=== PATIENT | female | born 1965 | race Caucasian/White ===

== ENCOUNTER 2016-05-27 08:39 | Day surgery (SDC) | payer BC, MEDICARE ==
[~2016-05-27 08:39] MED LIST: DIPRIVAN 200 MG/20 ML IV ONE; Depo-Medrol 80 MG/ML IM ONE; KEFZOL 1 GM IJ ONE; Sensorcaine 0.25% 10 ML IJ ONE; Sodium Chloride 0.9(Preservative Free) 10 ML IJ ONE
[2016-05-27] MEDS ORDERED: Lactated Ringers 1,000 ML IV SCH (09:00)
[2016-05-27] MEDS ORDERED: Pepcid 20 MG VIAL IV ONE (09:01)
[2016-05-27 09:06] VITALS: BP 120/85; PULSE 83; O2SAT 100
[2016-05-27] MEDS ORDERED: KEFZOL 1 GM ONE (11:07)
--- NOTE | 2016-05-27 12:29 | XRAY ---
Indication: Caudal ANN block. Intraoperative fluoroscopy was provided for 15 seconds. A single lateral digital spot image of the lumbosacral junction obtained without spinal needle or contrast present. Correlate with intraoperative findings/report.
--- NOTE | 2016-05-28 11:00 | XRAY ---
15 seconds fluoroscopy time in surgery for caudal ANN.
== END 2016-05-27 12:00 | disposition home or self-care (01) ==
LOC: SDC-PAIN 08:39
PROVIDERS: ATTEND Pain Medicine Interventional Pain Medicine
DX: M54.16 Radiculopathy, lumbar region (principal); M54.5 Low back pain; M48.06 Spinal stenosis, lumbar region
CPT/HCPCS: 62323; 72020; 77003; J0690; J1040; J2704; Q9967

== ENCOUNTER 2017-06-03 13:54 | Emergency (ER) | payer BC, MEDICARE ==
[2017-06-03] MEDS ORDERED: TORAdol 30 mg Injection IM ONE (16:05)
[2017-06-03] MEDS ORDERED: Norflex 60 MG/2 ML IM ONE (16:05)
--- NOTE | 2017-06-03 16:11 | ERPHSYRPT ---
- History of Present Illness Time Seen by Provider: 06/03/17 16:05 Source: patient Physician History: CC: fall Hx: 52 y/o patient of [facility]. She takes percocet for chronic pain. She fell at home last weekend and has continued pain. She states she went to pain management and they wanted CT scans and sent her here. She has headache. She has neck pain. She has some low back pain. No N/T/W. Pain is severe. Not . No chest or abd pain. Occurred: last week (weekend) Allergies/Adverse Reactions: Latex, Natural Rubber Allergy (Severe, Verified 08/31/12 14:30) Difficulty Breathing butorphanol tartrate [From Stadol] Allergy (Intermediate, Verified 08/31/12 14: 31) Rapid Heart Beat Penicillins Allergy (Intermediate, Verified 08/31/12 14:29) Hives duloxetine HCl [From Cymbalta] Allergy (Verified 01/04/14 09:03) milnacipran [From Savella] Allergy (Verified 05/27/16 09:00) pregabalin [From Lyrica] Allergy (Verified 01/04/14 09:03) Home Medications: Cyclobenzaprine HCl 10 mg [Flexeril 10 MG] 10 mg PO TID 09/17/15 [History] Digoxin 0.125 mg Tablet [Lanoxin 0.125MG TABLET] 0.125 mg PO DAILY [History] Estradiol 1 mg [Estrace 1 mg] 1 mg PO DAILY 09/17/15 [History] Nebivolol HCl [Bystolic] 5 - 10 mg PO DAILY 09/17/15 [History] Oxycodone HCl 20 mg PO Q8H 09/17/15 [History] Fluoxetine HCl 20 mg [Prozac 20 MG] 20 mg PO BID 05/19/17 [History] Hx Tetanus, Diphtheria Vaccination/Date Given: (UNSURE) Hx Influenza Vaccination/Date Given: No Hx Pneumococcal Vaccination/Date Given: No - Review of Systems Constitutional: No Fever, No Chills Eyes: No Symptoms Ears, Nose, & Throat: No Symptoms Respiratory: No Symptoms Cardiac: No Chest Pain Abdominal/Gastrointestinal: No Abdominal Pain, No Nausea, No Vomiting Genitourinary Symptoms: No Symptoms Musculoskeletal: Back Pain, Neck Pain, Fall, Injury, No Joint Pain Skin: No Rash Neurological: Headache, No Focal Weakness, No Parasthesia All Other Systems: Reviewed and Negative - Past Medical History Pertinent Past Medical History: Yes Neurological History: Migraines ENT History: No Pertinent History Cardiac History: Angina, Arrhythmia Respiratory History: No Pertinent History Endocrine Medical History: No Pertinent History Musculoskeletal History: Arthritis, Degenerative Disk Disease, Fractures, Osteoarthritis, Osteoporosis GI Medical History: GERD History: No Pertinent History Psycho-Social History: Anxiety Female Reproductive Disorders: No Pertinent History, Endometriosis Other Medical History: wrist fx - Past Surgical History Past Surgical History: Yes Neuro Surgical History: No Pertinent History Cardiac: No Pertinent History Respiratory: No Pertinent History Gastrointestinal: No Pertinent History Genitourinary: No Pertinent History Musculoskeletal: No Pertinent History, Other Female Surgical History: Section, Hysterectomy, Tubal Ligation Other Surgical History: neck surgery back surgery, both ebows and both wrists - Social History Smoking Status: Former smoker Exposure to second hand smoke: No Drug Use: none Patient Lives Alone: No - Nursing Vital Signs Nursing Vital Signs: Initial Vital Signs Pulse Rate 96 H 06/03/17 16:09 Respiratory Rate 18 06/03/17 16:09 Blood Pressure 138/91 06/03/17 16:09 Pain Scale Pain Intensity 10 - Omero Coma Score Best Eye Response ([place]): (4) open spontaneously Best Verbal Response ([place]): (5) oriented Best Motor Response ([place]): (6) obeys commands Omero Total: 15 - Physical Exam General Appearance: alert Head Injury: no evidence of injury Eye Exam: PERRL/EOMI ENT Exam: airway nml Neck Exam: mid-line tenderness (cervical) Respiratory/Chest Exam: normal breath sounds, No chest tenderness, No respiratory distress Cardiovascular Exam: normal heart sounds, regular rate/rhythm Gastrointestinal Exam: soft, No tenderness, No distention Back Exam: normal inspection, vertebral tenderness (mild low) Extremity Exam: normal inspection, normal range of motion Neurologic Exam: alert, oriented x 3, cooperative, sensation nml, No motor deficits Skin Exam: warm, dry, No rash - Course Nursing assessment & vital signs reviewed: Yes - Radiology Exams lumbar X-ray Interpretation: Teleradiologist Report, Negative, No Fracture, No Subluxation - CT Exams head CT Interpretation: Negative, Tele-radiologist Report cervical CT Interpretation: Tele-radiologist Report, No Fracture (no subluxation) Ordered Tests: Active Orders 24 hr Category Date Time Status Cervical Collar Application STAT Care 06/03/17 16:06 Active CERVICAL SPINE WO CONTRAST [CT] Stat Exams 06/03/17 16:06 Completed HEAD WITHOUT CONTRAST [CT] Stat Exams 06/03/17 16:06 Completed LUMBAR LIMITED (2 OR 3 VIEWS) Stat Exams 06/03/17 16:05 Taken Medication Summary Discontinued Medications Generic Name Dose Route Start Last Admin Trade Name Leidy PRN Reason Stop Dose Admin Ketorolac Tromethamine 60 mg 06/03/17 16:05 06/03/17 16:21 Toradol 30 Mg Injection IM 06/03/17 16:06 60 mg STAT ONE Administration Ketorolac Tromethamine Confirm 06/03/17 16:16 Toradol 30 Mg Injection Administered 06/03/17 16:17 Dose 60 mg .ROUTE .STK-MED ONE Orphenadrine Citrate 60 mg 06/03/17 16:05 06/03/17 16:21 Norflex 60 Mg/2 Ml IM 06/03/17 16:06 60 mg STAT ONE Administration Orphenadrine Citrate Confirm 06/03/17 16:16 Norflex 60 Mg/2 Ml Administered 06/03/17 16:17 Dose 60 mg .ROUTE .STK-MED ONE - Progress Progress Note: 06/03/17 17:02 Reviewed lumbar xray and CT results. She was not particularly tender on thoracic spine. Discussed risks of radiation and xray will not show bulging disk. She is concerned about her known bulging disk in thoracic. She has percocet, flexeril, and ibuprofen at home. Advised continue her medications and follow up with Dr Richard tomorrow for further care. She will call to take her home. Counseled pt/family regarding: diagnosis, need for follow-up, rad results - Departure Time of Disposition: 17:09 Departure Disposition: Home Clinical Impression: Fall, exacerbation of chronic spine pain Condition: Stable Critical Care Time: No Referrals: KOBI MURRY [Primary Care Provider] - YUDELKA RICHARD DO [COURTESY STAFF] - Instructions: Low Back Pain in Adults, Cervical Muscle Strain (DC), Chronic Pain (DC) Additional Instructions: Use your percocet and flexeril as already prescribed. Take ibuprofen 600mg three times a day with food. No driving. CAll Dr Richard tomorrow for further care.
[2017-06-03] MEDS ORDERED: TORAdol 30 mg Injection ONE (16:16)
[2017-06-03] MEDS ORDERED: Norflex 60 MG/2 ML ONE (16:16)
--- NOTE | 2017-06-03 16:52 | XRAY ---
Indication: Headache following fall 6 days ago. Multiple contiguous axial images obtained through the head without contrast. Comparison: None Normal appearing brain parenchyma, ventricles, and bony calvarium. Visualized paranasal sinuses and mastoid air cells are clear. Impression: Normal CT head without contrast exam. CTDI 48.47
--- NOTE | 2017-06-03 16:53 | XRAY ---
Indication: Neck pain following fall 6 days ago. Multiple contiguous axial images obtained through the cervical spine. Sagittal and coronal reformatted images obtained. Comparison: None Axial images negative for acute fracture, suspicious bony lesions, or spinal canal stenosis. There has been previous C4-C5 fusion surgery with intact anterior plate/screws and intervertebral spacer producing beam artifact limiting these levels. Mild C4-C6 endplate spurring. Sagittal and coronal reformatted images demonstrates normal alignment. Mild C5-C6 disc space narrowing and tiny multilevel thoracic Schmorl nodes. No acute compression fracture, subluxation, or jumped facet. Normal-appearing craniocervical junction. Visualized noncontrasted soft tissues are unremarkable. Minimal biapical fibrosis/scarring. CT head reported separately. Impression: 1. Negative acute fracture/subluxation. 2. C4-C5 fusion surgery with intact spinal hardware producing beam artifact. 3. C4-C6 degenerative endplate spurring. CTDI 104.02
--- NOTE | 2017-06-03 17:03 | XRAY ---
Indication: Pain following fall 6 days ago. Comparison: April 30, 2009. 3 views of the lumbar spine again demonstrates mild dextrorotoscoliosis centered at the L2 level, L2 laminectomy, bilateral L5-S1 degenerative facet arthropathy, and L5-S1 disc space narrowing. Progressive worsening moderate/advanced L2-L3 degenerative disc disease as evidenced by disc space narrowing, endplate sclerosis/spurring, and vacuum disc phenomena. Negative for acute fracture, subluxation, or suspicious bony lesions. Mild scattered fecal debris in the ascending and transverse colon. Impression: Nonacute lumbar spine with chronic features.
[2017-06-03 17:09] VITALS: BP 118/71; PULSE 82
== END 2017-06-03 17:32 | disposition home or self-care (01) ==
LOC: ED 13:54
DX: M54.5 Low back pain (principal); M54.2 Cervicalgia; G89.29 Other chronic pain; R51 Headache; W19.XXXA Unspecified fall, initial encounter; Z79.899 Other long term (current) drug therapy
CPT/HCPCS: 70450; 72100; 72125; 99284; J1885; J2360

== ENCOUNTER 2018-06-22 11:24 | Day surgery (SDC) | payer BC, MEDICARE ==
[2018-06-22] MEDS ORDERED: Depo-Medrol 40 MG/ML IM ONE (11:25)
[2018-06-22] MEDS ORDERED: Marcaine 0.5% SDV 10 ML IJ ONE (11:25)
[2018-06-22] MEDS ORDERED: DIPRIVAN 200 MG/20 ML IV ONE (11:25)
[2018-06-22] MEDS ORDERED: Ketamine HCl 50 MG/ML IV ONE (11:25)
[2018-06-22] MEDS ORDERED: MORPHINE SULFATE 10 MG/ML ONE (13:26)
[2018-06-22] MEDS ORDERED: Lactated Ringers 1,000 ML IV ONE (14:30)
--- NOTE | 2018-06-22 14:50 | XRAY ---
Indication: Bilateral SI injection. Intraoperative fluoroscopy was provided for 27 seconds. 4 digital spot images submitted for interpretation demonstrates posterior needle tip projecting over the inferior left and right SI joints. Correlate with intraoperative findings/report.
--- NOTE | 2018-06-22 15:15 | XRAY ---
27 seconds of fluoroscopy was used in surgery for bilateral SI injection.
== END 2018-06-22 13:39 | disposition home or self-care (01) ==
LOC: SDC-PAIN 11:24
PROVIDERS: ATTEND Psychiatry & Neurology Pain Medicine
DX: M46.1 Sacroiliitis, not elsewhere classified (principal); Z79.899 Other long term (current) drug therapy
CPT/HCPCS: 27096; 72020; 77002; J1030; J2270; J2704; G0260

== ENCOUNTER 2018-07-27 11:43 | Day surgery (SDC) | payer BC, MEDICARE ==
[2018-07-27] MEDS ORDERED: Ketamine HCl 50 MG/ML IJ ONE (11:44)
[2018-07-27] MEDS ORDERED: Sodium Chloride 0.9(Preservative Free) 10 ML IJ ONE (11:44)
[2018-07-27] MEDS ORDERED: Depo-Medrol 40 MG/ML IM ONE (11:44)
[2018-07-27] MEDS ORDERED: DIPRIVAN 200 MG/20 ML IV ONE (11:44)
[2018-07-27] MEDS ORDERED: Xylocaine 1% Vial 30 ML PF IJ ONE (11:44)
[2018-07-27] MEDS ORDERED: Lactated Ringers 1,000 ML IV ONE (13:04)
[2018-07-27] MEDS ORDERED: MORPHINE SULFATE 10 MG/ML ONE ×2 (13:12→13:19)
--- NOTE | 2018-07-27 13:54 | XRAY ---
Indication: Bilateral L4-S1 ANN. Intraoperative fluoroscopy was provided for 33 seconds. 5 digital spot images submitted for interpretation demonstrates posterior spinal needle tips projecting over the expected course of the left and right L4 and L5 nerve roots. Small amount of contrast injected for needle tip placement. Correlate with intraoperative findings/report.
--- NOTE | 2018-07-27 13:57 | XRAY ---
33 seconds fluoroscopy time in surgery for left L3-S1 RFA.
== END 2018-07-27 13:44 | disposition home or self-care (01) ==
LOC: SDC-PAIN 11:43
PROVIDERS: ATTEND Psychiatry & Neurology Pain Medicine
DX: M54.16 Radiculopathy, lumbar region (principal); Z79.899 Other long term (current) drug therapy; M19.90 Unspecified osteoarthritis, unspecified site
CPT/HCPCS: 72020; 77003; J1030; J2001; J2270; J2704

== ENCOUNTER 2021-09-12 18:55 | Emergency (ER) | payer BC, MEDICARE ==
--- NOTE | 2021-09-12 18:57 | ERPHSYRPT ---
- History of Present Illness Time Seen by Provider: 09/12/21 18:57 Source: patient Exam Limitations: no limitations Physician History: This is a right-handed 56-year-old white female who was using a knife to remove the pit of an avocado and the knife slipped cutting her on the fat pad of the left index finger. This occurred approximate 3:00 in the afternoon and she could not get the bleeding stopped. Patient states that her tetanus status is not up-to-date. She has no bleeding or clotting disorders. Occurred: just prior to arrival Method of Injury: other (Accidental laceration) Quality: sharpness Severity of Pain-Max: mild Severity of Pain-Current: mild Extremities Pain Location: 2nd finger: left Modifying Factors: Improves With: nothing Associated Symptoms: none Allergies/Adverse Reactions: Latex, Natural Rubber Allergy (Severe, Verified 09/12/21 19:10) Difficulty Breathing butorphanol tartrate [From Stadol] Allergy (Intermediate, Verified 09/12/21 19:10) Rapid Heart Beat Penicillins Allergy (Intermediate, Verified 09/12/21 19:10) Hives duloxetine HCl [From Cymbalta] Allergy (Verified 09/12/21 19:10) gabapentin Allergy (Verified 09/12/21 19:10) milnacipran [From Savella] Allergy (Verified 09/12/21 19:10) pregabalin [From Lyrica] Allergy (Verified 09/12/21 19:10) Home Medications: Digoxin 0.125 mg Tablet [Lanoxin 0.125MG TABLET] 0.125 mg PO DAILY 09/17/15 [History] Estradiol 1 mg [Estrace 1 mg] 1 mg PO DAILY 09/17/15 [History] Nebivolol HCl [Bystolic] 5 - 10 mg PO DAILY 09/17/15 [History] Tizanidine HCl [Zanaflex] 4 mg PO BID 06/29/17 [History] Ibuprofen 600 mg PO Q8H PRN PRN 07/06/17 [History] Mvit,Calcium,Iron,Mins/A.acids [[place] Double Strength Capsule] 1 each PO DAILY 07/06/17 [History] Oxycodone HCl 10 mg PO Q8H PRN PRN 07/06/17 [History] Ergocalciferol (Vitamin D2) [Vitamin D] 50,000 unit PO WEEKLY 08/31/17 [History] SUMAtriptan succinate [Imitrex] 100 mg PO DAILY PRN PRN 08/31/17 [History] Hx Tetanus, Diphtheria Vaccination/Date Given: (UNSURE) Hx Influenza Vaccination/Date Given: No Hx Pneumococcal Vaccination/Date Given: No Travel Risk - International Travel Have you traveled outside of the country in past 3 weeks: No - Coronavirus Screening Are you exhibiting any of the following symptoms?: No Close contact with a COVID-19 positive Pt in past 14-21 Days: No - Review of Systems Constitutional: No Symptoms Eyes: No Symptoms Ears, Nose, & Throat: No Symptoms Respiratory: No Symptoms Cardiac: No Symptoms Abdominal/Gastrointestinal: No Symptoms Genitourinary Symptoms: No Symptoms Musculoskeletal: No Symptoms Skin: Other (1 cm laceration superficial left index finger fat pad) Neurological: No Symptoms Psychological: No Symptoms Endocrine: No Symptoms Hematologic/Lymphatic: No Symptoms Immunological/Allergic: No Symptoms, Pollen Allergy All Other Systems: Reviewed and Negative - Past Medical History Pertinent Past Medical History: Yes Neurological History: Migraines ENT History: No Pertinent History Cardiac History: Arrhythmia, Hypertension, Other Respiratory History: No Pertinent History Endocrine Medical History: No Pertinent History Musculoskeletal History: Degenerative Disk Disease, Osteoarthritis, Other GI Medical History: GERD History: No Pertinent History Psycho-Social History: Anxiety Female Reproductive Disorders: No Pertinent History, Endometriosis Other Medical History: Cervical fusion C4-6. Carpal tunnel repair. B ulnar nerve transposition. R RTC repair. L1-2 discectomy. Spinal stenosis. 5 C- sections - Past Surgical History Past Surgical History: Yes Neuro Surgical History: No Pertinent History Cardiac: No Pertinent History Respiratory: No Pertinent History Gastrointestinal: No Pertinent History Genitourinary: No Pertinent History Musculoskeletal: No Pertinent History, Other Female Surgical History: Section, Hysterectomy, Tubal Ligation Other Surgical History: neck surgery back surgery, both ebows and both wrists - Social History Smoking Status: Former smoker Exposure to second hand smoke: No Drug Use: none Patient Lives Alone: No - Nursing Vital Signs Nursing Vital Signs: Initial Vital Signs Temperature 98.3 F 09/12/21 19:11 Pulse Rate 68 09/12/21 19:11 Respiratory Rate 19 09/12/21 19:11 Blood Pressure 125/62 09/12/21 19:11 O2 Sat by Pulse Oximetry 100 05/13/22 19:11 Pain Scale Pain Intensity 0 - Physical Exam General Appearance: no apparent distress, alert, anxiety Eyes, Ears, Nose, Throat Exam: normal ENT inspection, moist mucous membranes Neck Exam: normal inspection, non-tender, supple, full range of motion Cardiovascular/Respiratory Exam: chest non-tender, no respiratory distress Abdominal Exam: non-tender Back Exam: normal inspection, normal range of motion, No CVA tenderness, No vertebral tenderness Shoulder Exam: normal inspection, non-tender, no evidence of injury, normal ROM Elbow/Forearm Exam: normal inspection, non-tender, no evidence of injury, normal ROM Wrist Exam: normal inspection, non-tender, no evidence of injury, normal ROM Hand Exam: normal ROM, laceration (1 cm, fat pad, second digit laceration mild constant oozing venous bleed.) Neuro/Tendon Exam: normal sensation, normal motor functions, normal tendon functions, responds to pain, no evidence tendon injury Mental Status Exam: alert, oriented x 3, cooperative Skin Exam: laceration (Left second digit fat pad 1 cm) SpO2 Interpretation: normal O2 Delivery: Room Air Procedures - Laceration/Wound Repair Left Finger Time of Procedure: 19:40 Wound Location: Left, hand (Second digit) Wound Length (cm): 1 Wound's Depth, Shape: superficial, linear Wound Explored: clean (Evaluation is mainly brought this field to the base. There is no foreign body noted) Irrigated: Yes Hibiclens Prep: Yes Wound Repaired With: Steri-strips (1/2 inch Steri-Strips), Dermabond (Cleaned with benzoin tincture) Layer Closure?: No - Course Nursing assessment & vital signs reviewed: Yes Ordered Tests: Medication Summary Generic Name Dose Route Start Last Admin Trade Name Freq PRN Reason Stop Dose Admin Diphtheria/Tetanus/Acell Pertussis 0.5 ml 09/12/21 19:44 Tdap --Diph,Pertuss(Acell),Tet Vac/Pf 0.5 Ml Vial IM 09/12/21 19:45 .ONCE ONE - Progress Progress: improved Counseled pt/family regarding: diagnosis, need for follow-up - Departure Departure Disposition: Home Clinical Impression: Finger laceration Condition: Stable Critical Care Time: No Referrals: MICHAEL GARNICA MD [Primary Care Provider] - Follow up/PCP as directed Additional Instructions: Keep pressure dressing in place until Wednesday morning, 09/14/2021. At that time you may remove the pressure dressing but keep the Steri-Strips in place until they fall off on their own. Use Tylenol and ibuprofen for pain control.
[2021-09-12] MEDS ORDERED: Adacel Vial IM ONE (19:44)
[2021-09-12] MEDS ORDERED: TENIVAC VIAL IM ONE (20:01)
[2021-09-12 20:13] VITALS: BP 109/70; PULSE 70; O2SAT 99
== END 2021-09-12 20:14 | disposition home or self-care (01) ==
LOC: ED 18:55
DX: S61.211A Laceration without foreign body of left index finger without damage to nail, initial encounter (principal); W26.0XXA Contact with knife, initial encounter; Y93.G1 Activity, food preparation and clean up; M79.645 Pain in left finger(s); I10 Essential (primary) hypertension; Z79.899 Other long term (current) drug therapy
CPT/HCPCS: 12001; 90471; 90714; 90715; 99283

== ENCOUNTER 2021-12-23 15:34 | Emergency (ER) | payer MEDICARE, OTHER ==
[2021-12-23] MEDS ORDERED: Sodium Chloride 0.9% 1000 ML 1,000 ML IV STA (16:42)
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
[2021-12-23] MEDS ORDERED: TORAdol 30 mg Injection IV ONE (16:54)
[2021-12-23] MEDS ORDERED: TORAdol 30 mg Injection ONE (16:54)
[2021-12-23] MEDS ORDERED: Sodium Chloride 0.9% 1000 ML 1,000 ML ONE (16:55)
[2021-12-23 16:57] LABS: Absolute Neutrophil Ct (ANC) 2.14 x10^3/uL (1.4-6.9); Basophil (Absolute #) 0.06 x10^3/uL (0-0.4); Eosinophil % 5.2 % (0.00-5.0); Eosinophil (Absolute #) 0.29 x10^3/uL (0-0.5); Hemoglobin 13.1 g/dL (12.0-16.0); Lymphocyte (Absolute #) 2.36 x10^3/uL (1.0-4.6); Lymphocytes % 42.4 % (24.0-44.0); Mean Corpuscular Hemoglobin 30.9 pg (26-32); Mean Corpuscular Hgb Concent. 33.6 g/dL (32-36); Mean Platelet Volume 9.5 fL (7.5-11.0); Monocytes % 12.6 % (0.0-12.0); Neutrophil % 38.5 % (36.0-66.0); Platelet Count 288 x10^3/uL (150-450); Red Blood Count 4.24 x10^6/uL (4.1-5.4); Red Cell Distribution Width 13.8 % (11.5-14.0); White Blood Count 5.6 x10^3/uL (4.0-10.5)
[2021-12-23 17:07] LABS: Mucus SLIGHT /HPF (NEGATIVE)
[2021-12-23 17:13] LABS: Appearance CLEAR (CLEAR); Bilirubin NEGATIVE (NEGATIVE); Dipstick done @ ? MAIN LAB; Glucose NEGATIVE (NEGATIVE); Ketones NEGATIVE (NEGATIVE); Nitrite NEGATIVE (NEGATIVE); Ph 5.5 (5-6); Protein,Urine Dip NEGATIVE (Negative); RBC NEGATIVE Ery/ul (0-5); Urobilinogen 0.2 mg/dL (0-1)
[2021-12-23 17:14] LABS: ALBUMIN 5.1 g/dL (3.5-5.0); ALKALINE PHOSPHATASE 95 U/L (38-126); BLOOD UREA NITROGEN 19 mg/dL (7-17); CHLORIDE 101 mmol/L (98-107); Calcium 9.8 mg/dL (8.4-10.2); Carbon Dioxide 28 mmol/L (22-30); Creatinine 1 0.79 mg/dL (0.52-1.04); EST GLOMERULAR FILTRATION RATE > 60.0 ML/MIN; Glucose 98 mg/dL (74-106); Potassium 4.3 mmol/L (3.5-5.1); SGOT/AST 29 U/L (14-36); SGPT/ALT 18 U/L (0-35); SODIUM 136 mmol/L (137-145); Total Protein 8.6 g/dL (6.3-8.2)
[2021-12-23 17:16] LABS: RBC NONE SEEN /HPF (0-2); Urine Cultured Indicated? NO
[2021-12-23 19:55] VITALS: BP 153/98; PULSE 76
[2021-12-23 19:56] VITALS: O2SAT 98
== END 2021-12-23 19:59 | disposition home or self-care (01) ==
LOC: ED 15:34
DX: Z04.1 Encounter for examination and observation following transport accident (principal); M47.816 Spondylosis without myelopathy or radiculopathy, lumbar region; M41.9 Scoliosis, unspecified; M19.011 Primary osteoarthritis, right shoulder; M54.2 Cervicalgia; M54.6 Pain in thoracic spine; R07.81 Pleurodynia; R10.2 Pelvic and perineal pain; I10 Essential (primary) hypertension; Z79.899 Other long term (current) drug therapy; Z28.310 Unvaccinated for COVID-19
CPT/HCPCS: 36000; 36415; 71260; 72125; 74177; 76376; 80053; 81015; 85025; 96374; 99284; J1885

== ENCOUNTER 2022-10-21 12:54 | Day surgery (SDC) | payer MEDICARE ==
[2022-10-21] MEDS ORDERED: Sodium Chloride 0.9(Preservative Free) 10 ML IJ ONE (12:55)
[2022-10-21] MEDS ORDERED: LIDOCAINE HCL 1% 50 MG/5 ML VL PF IJ ONE (12:55)
[2022-10-21] MEDS ORDERED: Depo-Medrol 40 MG/ML IM ONE (12:55)
[2022-10-21] MEDS ORDERED: DIPRIVAN 200 MG/20 ML IV ONE (15:13)
[2022-10-21] MEDS ORDERED: Lactated Ringers 1,000 ML IV ONE (15:45)
--- NOTE | 2022-10-21 16:39 | XRAY ---
Indication: Thoracic ANN. Intraoperative fluoroscopy provided for 21 seconds. 2 digital spot images submitted for interpretation demonstrates posterior needle tip projecting posterior to T9. Small amount of contrast injected for needle tip placement. Correlate with intraoperative findings/report.
--- NOTE | 2022-10-22 09:02 | XRAY ---
21 seconds of fluoroscopy was used in surgery for a thoracic ANN.
== END 2022-10-21 15:46 | disposition home or self-care (01) ==
LOC: SDC-PAIN 12:54
PROVIDERS: ATTEND Psychiatry & Neurology Pain Medicine
DX: M54.16 Radiculopathy, lumbar region (principal); Z79.899 Other long term (current) drug therapy
CPT/HCPCS: 62321; 72072; 77003; J1030; J2001; J2704; Q9966

== ENCOUNTER 2022-12-09 12:29 | Day surgery (SDC) | payer MEDICARE ==
[2022-12-09] MEDS ORDERED: BUPIVACAINE 0.5% VIAL IJ ONE (12:30)
[2022-12-09] MEDS ORDERED: Depo-Medrol 40 MG/ML IM ONE (12:30)
[2022-12-09] MEDS ORDERED: Zofran 4 MG/2 ML VIAL ONE (14:15)
[2022-12-09] MEDS ORDERED: BENADRYL 50 MG/ML ONE (14:15)
[2022-12-09] MEDS ORDERED: TORAdol 30 mg Injection ONE (14:15)
[2022-12-09] MEDS ORDERED: DIPRIVAN 200 MG/20 ML IV ONE (14:42)
[2022-12-09] MEDS ORDERED: Lactated Ringers 1,000 ML IV ONE (16:00)
--- NOTE | 2022-12-09 16:33 | XRAY ---
24 seconds of fluoroscopy was used in surgery for a bilateral intra-articular hip injection.
--- NOTE | 2022-12-09 16:39 | XRAY ---
Indication: Bilateral hip injection. Intraoperative fluoroscopy provided for 24 seconds. 2 digital spot image submitted for interpretation demonstrates needle tip projecting lateral to the left and right femur neck. Small amount of contrast injected for both needle tip placement. Correlate with intraoperative findings/report.
== END 2022-12-09 15:10 | disposition home or self-care (01) ==
LOC: SDC-PAIN 12:29
PROVIDERS: ATTEND Psychiatry & Neurology Pain Medicine
DX: M16.0 Bilateral primary osteoarthritis of hip (principal); Z79.899 Other long term (current) drug therapy
CPT/HCPCS: 20610; 73521; 77002; J1030; J1200; J1885; J2405; J2704; Q9966

== ENCOUNTER 2022-12-16 11:03 | Day surgery (SDC) | payer MEDICARE ==
[2022-12-16] MEDS ORDERED: LIDOCAINE HCL 2% 100 MG/5 ML IJ ONE (11:04)
[2022-12-16] MEDS ORDERED: Xylocaine-Mpf 2% 5 Ml Vial ONE (13:38)
[2022-12-16] MEDS ORDERED: DIPRIVAN 200 MG/20 ML IV ONE (13:38)
--- NOTE | 2022-12-16 14:48 | XRAY ---
Indication: Right C2-C4 MBB. Intraoperative fluoroscopy provided for 18 seconds. 2 digital spot image submitted for interpretation demonstrates posterior needle tips projecting over the expected right C2-C4 nerve roots. Correlate with intraoperative findings/report. Incidental C4-C5 fusion hardware.
[2022-12-16] MEDS ORDERED: Lactated Ringers 1,000 ML IV ONE (15:01)
--- NOTE | 2022-12-18 11:32 | XRAY ---
18 seconds of fluoroscopy was used in surgery for a right C2-C4 MBB.
== END 2022-12-16 14:10 | disposition home or self-care (01) ==
LOC: SDC-PAIN 11:03
PROVIDERS: ATTEND Psychiatry & Neurology Pain Medicine
DX: M47.812 Spondylosis without myelopathy or radiculopathy, cervical region (principal); Z79.899 Other long term (current) drug therapy
CPT/HCPCS: 64490; 64491; 72040; 77002; J2704

== ENCOUNTER 2023-02-24 14:52 | Day surgery (SDC) | payer MEDICARE ==
[2023-02-24] MEDS ORDERED: Depo-Medrol 40 MG/ML IM ONE (14:53)
[2023-02-24] MEDS ORDERED: LIDOCAINE HCL 1% 50 MG/5 ML VL PF IJ ONE (14:53)
[2023-02-24] MEDS ORDERED: BUPIVACAINE 0.5% VIAL IJ ONE (14:53)
[2023-02-24] MEDS ORDERED: DIPRIVAN 200 MG/20 ML IV ONE (16:49)
[2023-02-24] MEDS ORDERED: Lactated Ringers 1,000 ML IV ONE (17:27)
--- NOTE | 2023-02-24 17:31 | XRAY ---
28 seconds of fluoroscopy was used in surgery for a right C2-C4 RFA.
--- NOTE | 2023-02-24 17:31 | XRAY ---
Indication: Right C2-C4 RFA. Intraoperative fluoroscopy provided for 28 seconds. 3 digital spot image submitted for interpretation demonstrates posterior needle tips projecting over the expected right C2-C4 nerve roots. Correlate with intraoperative findings/report. Incidental lower cervical fusion hardware.
== END 2023-02-24 17:20 | disposition home or self-care (01) ==
LOC: SDC-PAIN 14:52
PROVIDERS: ATTEND Psychiatry & Neurology Pain Medicine
DX: M47.812 Spondylosis without myelopathy or radiculopathy, cervical region (principal)
CPT/HCPCS: 64633; 64634; 72040; 77002; J1030; J2001; J2704

== ENCOUNTER 2023-04-15 14:05 | Day surgery (SDC) | payer MEDICARE ==
[2023-04-15] MEDS ORDERED: BUPIVACAINE 0.5% VIAL IJ ONE (14:06)
[2023-04-15] MEDS ORDERED: Depo-Medrol 40 MG/ML IM ONE (14:06)
[2023-04-15] MEDS ORDERED: DIPRIVAN 200 MG/20 ML IV ONE (15:17)
[2023-04-15] MEDS ORDERED: Lactated Ringers 1,000 ML IV ONE (16:30)
--- NOTE | 2023-04-15 16:48 | XRAY ---
Indication: Bilateral hip injection. Intraoperative fluoroscopy provided for 22 seconds. 2 digital spot image submitted for interpretation demonstrates needle tip projecting lateral to the left and right femur necks. Small amount of contrast injected for both needle tip placement. Correlate with intraoperative findings/report.
--- NOTE | 2023-04-15 16:53 | XRAY ---
22 seconds of fluoroscopy was used in surgery for a bilateral intra-articular hip injection.
== END 2023-04-15 15:45 | disposition home or self-care (01) ==
LOC: SDC-PAIN 14:05
PROVIDERS: ATTEND Psychiatry & Neurology Pain Medicine
DX: M16.0 Bilateral primary osteoarthritis of hip (principal)
CPT/HCPCS: 20610; 73521; 77002; J1030; J2704; Q9966

== ENCOUNTER 2023-06-02 12:13 | Day surgery (SDC) | payer MEDICARE ==
[2023-06-02] MEDS ORDERED: BUPIVACAINE 0.5% VIAL IJ ONE (12:14)
[2023-06-02] MEDS ORDERED: Depo-Medrol 40 MG/ML IM ONE (12:14)
[2023-06-02] MEDS ORDERED: Lactated Ringers 1,000 ML IV ONE (15:31)
[2023-06-02] MEDS ORDERED: DIPRIVAN 200 MG/20 ML IV ONE (15:35)
--- NOTE | 2023-06-02 16:42 | XRAY ---
Indication: Right shoulder and subacromial bursa injection. Intraoperative fluoroscopy provided for 22 seconds. 2 digital spot image submitted for interpretation demonstrates needle tip projecting over the right glenohumeral joint superiorly. Second needle tip subacromial. Small amount of contrast injected for needle tip placement. Correlate with intraoperative findings/report.
--- NOTE | 2023-06-02 16:42 | XRAY ---
22 seconds of fluoroscopy was used in surgery for a right intra-articular shoulder and subacromial bursa injection.
== END 2023-06-02 16:05 | disposition home or self-care (01) ==
LOC: SDC-PAIN 12:13
PROVIDERS: ATTEND Psychiatry & Neurology Pain Medicine
DX: M19.011 Primary osteoarthritis, right shoulder (principal)
CPT/HCPCS: 20610; 73030; 77002; J1030; J2704; Q9966

== ENCOUNTER 2023-10-13 14:31 | Day surgery (SDC) | payer MEDICARE ==
[2023-10-13] MEDS ORDERED: Depo-Medrol 40 MG/ML IM ONE (14:32)
[2023-10-13] MEDS ORDERED: BUPIVACAINE 0.5% VIAL IJ ONE (14:32)
[2023-10-13] MEDS ORDERED: DIPRIVAN 200 MG/20 ML IV ONE (16:16)
--- NOTE | 2023-10-13 17:14 | XRAY ---
Indication: Right shoulder and subacromial bursa injection. Intraoperative fluoroscopy provided for 11 seconds. 2 digital spot image submitted for interpretation demonstrates needle tip projecting over the right glenohumeral joint superiorly. Second needle tip subacromial. Small amount of contrast injected for needle tip placement. Correlate with intraoperative findings/report.
[2023-10-13] MEDS ORDERED: Lactated Ringers 1,000 ML IV ONE (18:52)
--- NOTE | 2023-10-13 20:58 | XRAY ---
11 seconds of fluoroscopy used in surgery for a right intra-articular shoulder injection and right subacromial bursa injection.
== END 2023-10-13 16:48 | disposition home or self-care (01) ==
LOC: SDC-PAIN 14:31
PROVIDERS: ATTEND Psychiatry & Neurology Pain Medicine
DX: M19.011 Primary osteoarthritis, right shoulder (principal)
CPT/HCPCS: 20610; 73030; 77002; J1010; J2704; Q9966

== ENCOUNTER 2024-01-05 10:43 | Day surgery (SDC) | payer MEDICARE ==
[2024-01-05] MEDS ORDERED: Sodium Chloride 0.9(Preservative Free) 10 ML IJ ONE (10:44)
[2024-01-05] MEDS ORDERED: Decadron 4 MG INJ IV ONE (10:44)
[2024-01-05] MEDS ORDERED: Lactated Ringers 1,000 ML IV ONE (12:11)
[2024-01-05] MEDS ORDERED: DIPRIVAN 200 MG/20 ML IV ONE (12:28)
[2024-01-05] MEDS ORDERED: MORPHINE SULFATE 2 MG INJ ONE ×2 (12:38→12:53)
[2024-01-05] MEDS ORDERED: Hydromorphone 1 mg/ml Injection ONE (13:21)
--- NOTE | 2024-01-05 14:13 | XRAY ---
Indication: Left L4-S1 transforaminal ANN. Intraoperative fluoroscopy provided for 21 seconds. 5 digital spot image submitted for interpretation demonstrates posterior needle tips projecting over the expected left L4 and L5 nerve roots. Small amount of contrast injected for needle tip placement. Correlate with intraoperative findings/report.
--- NOTE | 2024-01-05 15:00 | XRAY ---
21 seconds of fluoroscopy was used in surgery for a left L4-S1 transforaminal ANN.
== END 2024-01-05 13:44 | disposition home or self-care (01) ==
LOC: SDC-PAIN 10:43
PROVIDERS: ATTEND Psychiatry & Neurology Pain Medicine
DX: M54.16 Radiculopathy, lumbar region (principal)
CPT/HCPCS: 64483; 64484; 72100; 77003; J1100; J1170; J2270; J2704; Q9966

== ENCOUNTER 2024-04-19 11:12 | Day surgery (SDC) | payer MEDICARE ==
[2024-04-19] MEDS ORDERED: Decadron 4 MG INJ IV ONE (11:13)
[2024-04-19] MEDS ORDERED: Sodium Chloride 0.9(Preservative Free) 10 ML IJ ONE (11:13)
[2024-04-19] MEDS ORDERED: DIPRIVAN 200 MG/20 ML IV ONE (12:59)
[2024-04-19] MEDS ORDERED: Hydromorphone 1 mg/ml Injection ONE ×2 (13:21→13:55)
--- NOTE | 2024-04-19 14:54 | XRAY ---
Indication: Right L4-S1 transforaminal ANN. Intraoperative fluoroscopy provided for 30 seconds. 4 digital spot images submitted for interpretation demonstrates posterior needle tips projecting over expected right L4 and L5 nerve roots. Small amount of contrast injected for needle tip placement. Correlate with intraoperative findings/report.
--- NOTE | 2024-04-19 15:01 | XRAY ---
30 seconds of fluoroscopy was used in surgery for a right L4-S1 transforaminal ANN.
== END 2024-04-19 14:18 | disposition home or self-care (01) ==
LOC: SDC-PAIN 11:12
PROVIDERS: ATTEND Psychiatry & Neurology Pain Medicine
DX: M54.16 Radiculopathy, lumbar region (principal)
CPT/HCPCS: 72100; 77003; J1100; J1171; J2704

== ENCOUNTER 2024-06-15 10:44 | Day surgery (SDC) | payer MEDICARE ==
[2024-06-15] MEDS ORDERED: LIDOCAINE HCL 2% 100 MG/5 ML IJ ONE (10:45)
[2024-06-15] MEDS ORDERED: propofoL IV ONE (12:37)
--- NOTE | 2024-06-15 14:31 | XRAY ---
Indication: Bilateral L4-S1 MBB. Intraoperative fluoroscopy provided for 9 seconds. Single digital spot image submitted for interpretation demonstrates posterior needle tips projecting over expected left and right L4-S1 nerve roots. Correlate with intraoperative findings/report.
--- NOTE | 2024-06-15 14:47 | XRAY ---
9 seconds of fluoroscopy was used in surgery for a bilateral L4-S1 MBB.
== END 2024-06-15 13:05 | disposition home or self-care (01) ==
LOC: SDC-PAIN 10:44
PROVIDERS: ATTEND Psychiatry & Neurology Pain Medicine
DX: M47.816 Spondylosis without myelopathy or radiculopathy, lumbar region (principal)
CPT/HCPCS: 64493; 64494; 72020; 77002; J2704

== ENCOUNTER 2024-07-05 09:13 | Day surgery (SDC) | payer MEDICARE ==
[2024-07-05] MEDS ORDERED: Depo-Medrol 40 MG/ML IM ONE (09:14)
[2024-07-05] MEDS ORDERED: BUPIVACAINE 0.5% VIAL IJ ONE (09:14)
[2024-07-05] MEDS ORDERED: propofoL IV ONE (11:11)
[2024-07-05] MEDS ORDERED: Versed 2 MG/2 ML Injection ONE (11:43)
--- NOTE | 2024-07-05 13:06 | XRAY ---
Indication: Bilateral hip and greater trochanter bursa injection. Intraoperative fluoroscopy provided for 27 seconds. 4 digital spot image submitted for interpretation demonstrate needle tips projecting lateral to left/right femur necks and left/right greater trochanters. Small amount of contrast injected for all needle tip placement. Correlate with intraoperative findings/report.
--- NOTE | 2024-07-05 13:07 | XRAY ---
27 seconds of fluoroscopy was used in surgery for a bilateral intra-articular hip and greater trochanteric bursa injection.
== END 2024-07-05 12:25 | disposition home or self-care (01) ==
LOC: SDC-PAIN 09:13
PROVIDERS: ATTEND Psychiatry & Neurology Pain Medicine
DX: M16.0 Bilateral primary osteoarthritis of hip (principal); M70.62 Trochanteric bursitis, left hip; M70.61 Trochanteric bursitis, right hip
CPT/HCPCS: 20610; 73522; 77002; J2250; J2704; Q9966

== ENCOUNTER 2024-08-17 11:38 | Day surgery (SDC) | payer MEDICARE ==
[2024-08-17] MEDS ORDERED: BUPIVACAINE 0.5% VIAL IJ ONE (11:39)
--- NOTE | 2024-08-17 19:25 | XRAY ---
15 seconds of fluoroscopy was used in surgery for a bilateral L4-S1 MBB.
--- NOTE | 2024-08-17 19:29 | XRAY ---
Indication: Bilateral L4-S1 MBB. Intraoperative fluoroscopy provided for 15 seconds. Single digital spot image submitted for interpretation demonstrates posterior needle tips projecting over expected left and right L4-S1 nerve roots. Correlate with intraoperative findings/report.
== END 2024-08-17 13:47 | disposition home or self-care (01) ==
LOC: SDC-PAIN 11:38
PROVIDERS: ATTEND Psychiatry & Neurology Pain Medicine
DX: M47.817 Spondylosis without myelopathy or radiculopathy, lumbosacral region (principal)
CPT/HCPCS: 64493; 64494; 72020

== ENCOUNTER 2024-09-06 11:31 | Day surgery (SDC) | payer MEDICARE ==
[2024-09-06] MEDS ORDERED: methylPREDNISolone acetate IM ONE (11:32)
[2024-09-06] MEDS ORDERED: LIDOCAINE HCL 1% 50 MG/5 ML VL IJ ONE (11:32)
[2024-09-06] MEDS ORDERED: BUPIVACAINE 0.5% VIAL IJ ONE (11:32)
[2024-09-06] MEDS ORDERED: Xylocaine-Mpf 2% 5 Ml Vial ONE ×2 (12:36→14:38)
[2024-09-06] MEDS ORDERED: Versed 2 MG/2 ML Injection ONE ×2 (14:02→14:37)
[2024-09-06] MEDS ORDERED: propofoL IV ONE ×2 (14:03→14:38)
[2024-09-06] MEDS ORDERED: Lactated Ringers 1,000 ML IV ONE (14:38)
[2024-09-06] MEDS ORDERED: DILAUDID 0.5 MG/0.5 ML SYRINGE ONE (15:08)
--- NOTE | 2024-09-06 16:33 | XRAY ---
Indication: Right L4-S1 RFA. Intraoperative fluoroscopy provided for 20 seconds. 5 digital spot image submitted for interpretation demonstrates posterior needle tips projecting over expected right L4-S1 nerve roots. Correlate with intraoperative findings/report.
--- NOTE | 2024-09-06 16:41 | XRAY ---
20 seconds of fluoroscopy was used in surgery for a right L4-S1 RFA.
== END 2024-09-06 15:36 | disposition home or self-care (01) ==
LOC: SDC-PAIN 11:31
PROVIDERS: ATTEND Psychiatry & Neurology Pain Medicine
DX: M47.817 Spondylosis without myelopathy or radiculopathy, lumbosacral region (principal)
CPT/HCPCS: 64635; 64636; 72100; J1010; J1171; J2250; J2704